=== PATIENT | male | born 1960 | race Caucasian/White ===

== ENCOUNTER 2017-11-28 13:36 | Inpatient (IN) | payer OTHER ==
[~2017-11-28] VITALS: Ht 165.1 cm; Wt 64.4 kg
[~2017-11-28 13:36] MED LIST: CYCLOBENZAPRINE10 M1 PO; NAPROSYN500 M1 PO
--- NOTE | 2017-11-28 14:12 | ED GI/GU/ABDOMINAL COMPLAINT ---
History of Present Illness General Chief Complaint: Abdominal Pain/Flank Pain Stated Complaint: ABD PAIN TO RUQ, X 1 DAY Source: patient Exam Limitations: no limitations Vital Signs & Intake/Output Vital Signs & Intake/Output Vital Signs Date Time Temp Pulse Resp B/P B/P Pulse O2 O2 Flow FiO2 Mean Ox Delivery Rate 11/28 1824 98.3 76 18 121/86 96 Room Air 11/28 1625 98.8 80 18 129/85 97 Room Air 11/28 1508 97.2 80 20 155/84 100 Room Air 11/28 1444 97 Room Air 11/28 1342 96.5 86 16 148/93 98 Room Air Allergies Coded Allergies: NO KNOWN ALLERGIES (01/15/12) Reconcile Medications Cyclobenzaprine HCl 10 MG TABLET 1 TAB PO Q8P SPASMS Naproxen (Naprosyn) 500 MG TABLET 1 TAB PO BID pain Triage Note: 57 Y/O MALE C/O RLQ PAIN SINCE THIS AM. HISTORY MULTIPLE ABDOMINAL SURGERIES WHICH HAVE RESULTED IN LARGE BULGE TO ABDOMEN, "ITS ALWAYS LIKE THIS". PT DENIES NOTING AREA BEING ANY LARGER HOWEVER STATES HE NORMALLY DOESNT HAVE PAIN IN AREA. DENIES N/V/D. DENIES CHANGES IN BMS. WENT TO [facility] AND STATES THE PA "TRIED TO PUSH ON IT". SENT TO ED FOR FURTHER EVAL Triage Nurses Notes Reviewed? yes HPI: Mr. Newell is a 57-year-old male with a past medical history significant for colon cancer s/p bowel resection (age 41) SIB urgent clinic for further evaluation of ventral hernia and abdominal pain. He states his abdominal pain is 2 out of 10 in severity without radiation. No alleviating factors. He reports his bowel resection was complicated by a ventral hernia that has not changed in size and is not reducible. He reports a recent colonoscopy with no new signs of cancer. He reports flank pain exacerbated by cough. Patient reports normal last bowel movement was today. He denies fever, chills, nausea, vomiting, urinary or bowel symptoms. (Heraclio LUCAS,[facility]) Past History Travel History Traveled to [place] past 21 day No Medical History Any Pertinent Medical History? 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 Yes (Heraclio LUCAS,Alexander) Review of Systems Review of Systems Constitutional: Reports: see HPI. (Heraclio LUCAS,Alexander) Physical Exam Physical Exam General Appearance: well developed/nourished, no apparent distress Ears, Nose, Throat, Mouth: moist mucous membrane Respiratory: normal breath sounds, lungs clear Cardiovascular: regular rate/rhythm Gastrointestinal: Ventral hernia, reducible, mild flank tenderness with palpation Core Measures ACS in differential dx? No Sepsis Present: No Sepsis Focused Exam Completed? No (Heraclio LUCAS,Alexander) Progress Differential Diagnosis: bowel obstruction, colon cancer, hernia, ischemic bowel Plan of Care: Orders Procedure Date/time Status Nothing by Mouth 11/29 B Active CBC WITHOUT DIFFERENTIAL 11/29 06 Active BASIC ELECTROLYTES PLUS BUN&CR 11/29 599 Active Nothing by Mouth 11/28 D Complete Pathway - chart 11/28 1904 Active Admit to inpatient 11/28 190 Active Patient Data 11/28 190 Active Code Status 11/28 1901 Active Misc Message 11/28 190 Active ED Holding Orders 11/28 190 Active Vital Signs 11/28 190 Active Code Status 11/28 190 Complete CBC WITHOUT DIFFERENTIAL 11/28 1413 Complete BASIC ELECTROLYTES PLUS BUN&CR 11/[address] in observation 11/28 UNK Active VTE Mechanical Prophylaxis 11/28 UNK Active Vital Signs 11/28 UNK Active Intake & Output 11/28 UNK Active Activity/Ambulation 11/28 UNK Active Current Medications Sig/Aurelio Start time Last Medication Dose Stop Time Status Admin Heparin Sodium 5,000 UNIT Q8 11/29 0600 UNVr (Porcine) Dextrose/Lactated 1,000 ML Q8H 11/28 1914 UNVr Ringer's (D5W in Lactated Ringers) Ondansetron HCl 4 MG Q6P PRN 11/28 1914 AC (Zofran) Laboratory Tests 11/28/17 1428: Anion Gap 15, Estimated GFR > 60, BUN/Creatinine Ratio 20.0, CBC w Diff NO MAN DIFF REQ, RBC 5.38, MCV 84.9, MCH 29.1, MCHC 34.3, RDW 14.5, MPV 8.3, Gran % 81.7 H, Lymphocytes % 11.2 L, Monocytes % 5.5, Eosinophils % 1.3, Basophils % 0.3, Absolute Granulocytes 6.8 H, Absolute Lymphocytes 0.9 L, Absolute Monocytes 0.5, Absolute Eosinophils 0.1, Absolute Basophils 0 Initial ED EKG: none Comments: Spoke with Dr. Ennis regarding CT findings. He will further evaluate the patient for possible surgical intervention (Alexander Pulliam MD) Departure Departure Condition: Stable Referrals: Grant LUCAS,Adam (PCP/Family) Departure Forms: Customer Survey General Discharge Information Admission Note Spoke With: Loli LUCAS,Tom N. Documentation of Exam: Documentation of any treatments & extenuating circumstances including Concerns Regarding Discharge (functional status, medication knowledge or non-compliance, living conditions, etc.) that warrant an admission rather than observation: [ Given patient's history patient is a poor candidate for outpatient management, patient's condition may result in bowel ischemia and/or hemorrhage, patient will require surgery consultation, bowel rest, and further monitoring] (Alexander Pulliam MD) Departure Disposition: STILL A PATIENT Clinical Impression Primary Impression: Ventral hernia Qualifiers: Obstruction and gangrene presence: with obstruction but without gangrene Qualified Code: K43.6 - Other and unspecified ventral hernia with obstruction, without gangrene Admission Note Documentation of Exam: Documentation of any treatments & extenuating circumstances including Concerns Regarding Discharge (functional status, medication knowledge or non-compliance, living conditions, etc.) that warrant an admission rather than observation: Resident Co-Sign Statement Statement: ED Attending supervision documentation- [X] I saw and evaluated the patient. I have also reviewed all the pertinent lab results and diagnostic results. I agree with the findings and the plan of care as documented in the Resident's documentation. Patient presents for evaluation of a right-sided abdominal pain that waxes and wanes in intensity. Patient had a normal bowel movement at about 7:00 this morning which did improve his pain. Physical examination reveals a large right ventral hernia that is soft but tender (patient states the area is typically not tender). [] I have reviewed the ED Record and agree with the Resident's documentation. [] Additions or exceptions (if any) to the Resident's note and plan are summarized below: [] (Gladys LUCAS,Sachin Strickland)
[2017-11-28 14:38] LABS: ABSOLUTE BASOPHIL COUNT 0 /CUMM (0.0-0.2); ABSOLUTE EOSINOPHIL COUNT 0.1 /CUMM (0.0-0.7); ABSOLUTE GRANULOCYTE CT 6.8 /CUMM (1.4-6.5); ABSOLUTE LYMPH COUNT 0.9 /CUMM (1.2-3.4); ABSOLUTE MONOCYTE COUNT 0.5 /CUMM (0.10-0.60); BASOPHIL % 0.3 % (0.0-2.0); EOSINOPHIL % 1.3 % (0-5); GRANULOCYTE % 81.7 % (42.2-75.2); HEMATOCRIT 45.7 % (42-52); MEAN CORPUSCULAR HGB 29.1 PG (27.0-31.0); MEAN CORPUSCULAR HGB CONC 34.3 G/DL (33.0-37.0); MEAN CORPUSCULAR VOLUME 84.9 FL (80.0-94.0); MEAN PLATELET VOLUME 8.3 FL (7.4-10.4); PLATELET COUNT 193 /CUMM (130-400); RBC DISTRIBUTION WIDTH 14.5 % (11.5-14.5); RED BLOOD CELL CT 5.38 /CUMM (4.70-6.10); WHITE BLOOD CELL COUNT 8.3 /CUMM (4.8-10.8)
--- NOTE | 2017-11-28 16:09 | CT SCAN REPORT ---
EXAMINATION: CT ABDOMEN AND PELVIS WITH CONTRAST CLINICAL INFORMATION: Right ventral wall hernia. Pain. Concern for strangulation hernia. COMPARISON: CT scan abdomen pelvis 02/12/2015. PET/CT exam of 06/04/2017 TECHNIQUE: Multidetector volumetric imaging was performed of the abdomen and pelvis following IV administration of 95 mL of Optiray 320 intravenous contrast. Sagittal and coronal reformatted images were obtained on the technologist's workstation. DLP: 257.26 mGy-cm FINDINGS: LUNG BASES: The visualized lung bases are unremarkable. LIVER, GALLBLADDER, AND BILIARY TREE: Mild low attenuation of liver parenchyma due to fatty change. No focal liver lesion. No intrahepatic bile duct dilatation. The gallbladder is unremarkable with no evidence of radiopaque gallstones, gallbladder wall thickening, or obvious pericholecystic inflammatory changes. PANCREAS: Unremarkable. SPLEEN: Unremarkable. ADRENAL GLANDS: Unremarkable. KIDNEYS AND URETERS: The kidneys are normal in size, shape, and attenuation. No hydronephrosis, hydroureter, or calculi seen. No perinephric stranding. BLADDER: Unremarkable. ABDOMINAL WALL/GASTROINTESTINAL TRACT: There is herniation of large and small bowel loops through a far right lateral abdominal wall hernia. This hernia is chronic unchanged since prior studies. There are dilated small bowel loops within the hernia at the midabdomen through lower pelvis consistent with a small bowel obstruction. The terminal ileum is decompressed. The large bowel is decompressed. There is a surgical suture line at the right colon. Moderate volume of stool throughout the colon. No bowel wall thickening or edema. MESENTERY: No free air or free fluid. No inflammation. LYMPH NODES: Normal. VASCULAR: Atherosclerotic vascular wall calcification of aorta and iliac vessels. No aneurysm. PELVIC VISCERA: Prostate measures 3.8 cm transverse. OSSEOUS STRUCTURES: Unremarkable. IMPRESSION: Small bowel obstruction. No bowel wall thickening or edema. No evidence of bowel ischemia. No abdominal ascites.
--- NOTE | 2017-11-28 19:06 | Admission Core Measures ---
Acute Coronary Syndrome (CM) ACS Core Measures Acute Coronary Syndrome Diagnosis No Congestive Heart Failure (NEW) CHF Core Measures Congestive Heart Failure Diagnosis No Cerebrovascular Accident (NEW) CVA Core Measures CVA/TIA Diagnosis No Venous Thromboembolism VTE Core Oscar (View Protocol) VTE Risk Factors Acute Medical Illness No Mechanical VTE Prophylaxis d/t N/A MechProphylax Ordered No VTE Pharm Prophylaxis d/t NA PharmProphylax ordered Problem List As ranked by this Provider includes Assessment & Plan 1. SBO (small bowel obstruction) HOME MEDS Home Med List Cyclobenzaprine HCl 10 MG TABLET 1 TAB PO Q8P SPASMS Naproxen (Naprosyn) 500 MG TABLET 1 TAB PO BID pain
[2017-11-28 23:10] VITALS: BP 112/70
[2017-11-29 06:00] VITALS: BP 128/74
[2017-11-29 09:14] LABS: ABSOLUTE BASOPHIL COUNT 0 /CUMM (0.0-0.2); ABSOLUTE EOSINOPHIL COUNT 0.2 /CUMM (0.0-0.7); ABSOLUTE GRANULOCYTE CT 3.8 /CUMM (1.4-6.5); ABSOLUTE LYMPH COUNT 1.2 /CUMM (1.2-3.4); ABSOLUTE MONOCYTE COUNT 0.5 /CUMM (0.10-0.60); BASOPHIL % 0.2 % (0.0-2.0); EOSINOPHIL % 2.7 % (0-5); GRANULOCYTE % 67.6 % (42.2-75.2); HEMATOCRIT 43.9 % (42-52); MEAN CORPUSCULAR HGB 28.7 PG (27.0-31.0); MEAN CORPUSCULAR VOLUME 86.9 FL (80.0-94.0); MEAN PLATELET VOLUME 8.9 FL (7.4-10.4); PLATELET COUNT 180 /CUMM (130-400); RBC DISTRIBUTION WIDTH 14.5 % (11.5-14.5); RED BLOOD CELL CT 5.05 /CUMM (4.70-6.10); WHITE BLOOD CELL COUNT 5.6 /CUMM (4.8-10.8)
--- NOTE | 2017-11-29 11:35 | RADIOLOGY REPORT ---
EXAMINATION: XR ABDOMEN MULTIPLE VIEWS CLINICAL INDICATION: Abdominal pain. Question small bowel distortion. COMPARISON: CT scan of the abdomen and pelvis 11/28/2017. TECHNIQUE: 2 views of the abdomen. FINDINGS: There are a few somewhat prominent air-filled loops of small bowel within the right hemiabdomen that demonstrate layering fluid on the upright image. Intraluminal gas and stool is visualized within a nondistended colon. Solid organ contours are normal. No acute osseous finding. Excreted contrast within the urinary bladder is noted. IMPRESSION: There are a few prominent small bowel loops within the right hemiabdomen that demonstrate layering fluid on upright examination. These findings may represent a manifestation of ileus or partial obstruction.
[2017-11-29 14:06] VITALS: BP 126/80
--- NOTE | 2017-11-29 19:30 | History & Physical Pre-Op ---
General Information and HPI MD Statement: I have seen and personally examined NICOLE GONZALEZ and documented this H&P. The patient is a 57 year old M who presented with a patient stated chief complaint of []. History of Present Illness: CC: abdominal pain HPI: 57 yo non-diabetic smoker no medications history of colectomy for cancer over 10 years ago complicated by a large right lateral ventral incisional hernia. He comes in with a 1 day history of tightness pressure and moderate pain in his abdomen on the side of the hernia, no nausea or vomiting, he has been eating salad more lately, a few days ago he was exerting himself a lot changing wheels and tires with his son, otherwise no recent flulike symptoms doesn't recall being dehydrated he has passed a little bit of gas earlier today but otherwise no bowel movement since yesterday, his bowel movements are regular for a long time ever since this hernia. The pain is not constant and doesn't radiate. I've reviewed the [facility]. No history of GERD, PUD, bleeding problems, heart disease or issues with anesthesia. Family history is negative for diabetes or cancer or heart disease. 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 History of MRSA: No History of VRE: No History of CDIFF: No Isolation History: Standard Surgical History Pertinent Surgical History: appendectomy, colon resection Past Family/Social History Psychosocial History Smoking Status: Current Everyday Smoker Review of Systems Review of Systems: Constitutional: No fever, sweats or weight loss ENMT: No sore throat Cardiovascular: No chest pain, palpitations or leg swelling Respiratory: No shortness of breath, cough, or sputum or dyspnea on exertion GI: No GERD or bleeding per rectum : No dysuria or hematuria Musculoskeletal: No new muscle weakness, bone or joint pain Skin / Breast: No jaundice, rashes or itching Psychiatric: No history of drug or alcohol abuse no depression or anxiety Hematologic / lymphatic system: No problems with excessive bleeding, bruising, or blood clots Exam & Diagnostic Data Last 24 Hrs of Vital Signs/I&O I reviewed Vital Signs Date Time Temp Pulse Resp B/P B/P Pulse O2 O2 Flow FiO2 Mean Ox Delivery Rate 11/28 2310 98.5 69 20 112/70 94 Room Air 11/28 2214 98.8 80 16 114/79 95 Room Air 11/28 2031 98.2 80 16 134/71 96 Room Air Intake & Output 142 lb Weight Physical Exam: Constitutional: pleasant, no acute distress, conversant Eyes: sclera anicteric ENMT: ears and nose atraumatic, moist mucous membranes, good dentition, no lip lesions Neck: Supple, trachea is midline, no cervical or supraclavicular adenopathy and no palpable thyromegaly Cardiovascular: S1, S2, no murmurs, no peripheral edema Respiratory: clear to auscultation with normal respiratory effort and no intercostal retractions GI: abdomen soft, large right lateral ventral hernia little firm positive bowel sounds minimal tenderness no rebound no guarding unable to appreciate for hepatomegaly because of the hernia Extremities / lymphatics: symmetrically warm, free range of motion no peripheral edema, no cervical, supraclavicular, axillary, or inguinal adenopathy Musculoskeletal: Did not evaluate gait and station, no digital cyanosis, good muscle strength and tone no atrophy, motor grossly 5 out of 5 throughout Skin: no jaundice, no rashes warm, nondiaphoretic, no areas of erythema or induration Psychiatric: mood and affect are appropriate and alert and oriented to person place and time Last 24 Hrs of Labs/Ezekiel: Laboratory Tests BUN 14 creatinine 0.7 sodium 143 potassium 3.9 chloride 105 bicarbonate 23 anion gap 15 white count 8.3 hemoglobin 15.7 hematocrit 45.7 platelets 193 81.7% granulocytes I reviewed multiple CT scans on PACS myself the liver from today compared to a PET CT from May 2017 from May 2013 from March 2010 we'll show this large hernia space cleared the same size defect spans from his right iliac crest to his liver on the current study there is some relative dilation of the small bowel and the area of the anastomosis appears dilated but not obviously the transition Assessment/Plan Assessment/Plan: Impression is small bowel obstruction presumably from adhesions from prior surgeries, often exacerbated by an unusual meal high in fiber or chewy food, it might be the salad even though it didn't seem unusual to him, or even straining, recent lifting of those tires may also be related. The hernia defect size I measured over 13 cm and its chronic, some of the dilated loops continue into the main abdomen so it's not the hernia per se. In the meantime will treat in routine nonoperative fashion with bowel rest, the stomach is dilated a little bit but is not nauseous hasn't vomited so we'll hold off with NG tube for decompression for now, maintenance IV fluids and for the GI losses, monitor uo, electrolytes, vital signs, serial exams, labs, abdominal x-rays. Presently there are no peritoneal signs, if situation plateaus or worsens, especially if abdominal pain worsens in next 6-12 hours, might need urgent surgical intervention in the interest of bowel viability, but as I explained, most of the time it is not needed. As Ranked By This Provider Problem List: 1. SBO (small bowel obstruction) 2. Ventral hernia 3. History of colon cancer Copies To: Loli LUCAS,Tom Barker Attending MD Review Statement Attending Statement Attending MD Statement: examined this patient
--- NOTE | 2017-11-29 19:31 | PN- General Surgery ---
Subjective Subjective: followup SBO I saw him twice today he says he feels a little less distended than earlier this morning no significant flatus but no nausea no vomiting no fevers no sweats and no abdominal pain he's hungry later this afternoon he started to feel a little bit of gas movement. No analgesics Objective Vital Signs and I&Os I rev Vital Signs Date Time Temp Pulse Resp B/P B/P Pulse O2 O2 Flow FiO2 Mean Ox Delivery Rate 11/29 1406 97.6 62 20 126/80 95 Room Air 11/29 0844 96 Room Air 11/29 0600 98.5 74 18 128/74 97 Room Air 11/28 2316 Room Air 11/28 2310 98.5 69 20 112/70 94 Room Air 11/28 2214 98.8 80 16 114/79 95 Room Air 11/28 2031 98.2 80 16 134/71 96 Room Air I rev Intake & Output 11/29 1600 11/29 0800 11/29 0000 11/28 1600 11/28 0800 11/28 0000 Intake Total 1000 1000 0 Output Total Balance 1000 1000 0 Intake, IV 1000 1000 Intake, Oral 0 0 Number 0 Bowel Movements Patient 142 lb 142 lb Weight Weight Reported by Patient Measurement Method Physical Exam: Constitutional: no acute distress no pain Eyes: sclera anicteric ENMT: moist mucous membranes Cardiovascular: S1-S2 no murmurs no peripheral edema Respiratory: clear to auscultation with normal respiratory effort and no intercostal retractions GI: abdomen softer than this morning nontender nondistended positive bowel sounds not hyperactive Extremities / lymphatics: free range of motion no peripheral edema Skin: no jaundice no rashes warm, nondiaphoretic Psychiatric: mood and affect are appropriate and alert and oriented to person place and time Current Medications: I reviewed Current Medications Sig/Aurelio Start time Last Medication Dose Route Stop Time Status Admin Dextrose/Lactated 1,000 ML Q8H 11/28 1914 AC 11/29 Ringer's IV 1338 Heparin Sodium 5,000 UNIT Q8 11/29 06 AC 11/29 (Porcine) SC 0537 Ondansetron HCl 4 MG Q6P PRN 11/28 1914 AC IV Results Last 48 Hours of Labs: I reviewed Laboratory Tests 11/29 11/28 0800 1428 Chemistry Sodium (137 - 145 mmol/L) 143 143 Potassium (3.5 - 5.1 mmol/L) 4.1 3.9 Chloride (98 - 107 mmol/L) 108 H 105 Carbon Dioxide (22 - 30 mmol/L) 22 23 Anion Gap (5 - 16) 13 15 BUN (9 - 20 mg/dL) 12 14 Creatinine (0.7 - 1.2 mg/dL) 0.7 0.7 Estimated GFR (>60 ml/min) > 60 > 60 BUN/Creatinine Ratio (7 - 25 %) 17.1 20.0 Hematology CBC w Diff NO MAN DIFF REQ NO MAN DIFF REQ WBC (4.8 - 10.8 /CUMM) 5.6 8.3 RBC (4.70 - 6.10 /CUMM) 5.05 5.38 Hgb (14.0 - 18.0 G/DL) 14.5 15.7 Hct (42 - 52 %) 43.9 45.7 MCV (80.0 - 94.0 FL) 86.9 84.9 MCH (27.0 - 31.0 PG) 28.7 29.1 MCHC (33.0 - 37.0 G/DL) 33.0 34.3 RDW (11.5 - 14.5 %) 14.5 14.5 Plt Count (130 - 400 /CUMM) 180 193 MPV (7.4 - 10.4 FL) 8.9 8.3 Gran % (42.2 - 75.2 %) 67.6 81.7 H Lymphocytes % (20.5 - 51.1 %) 20.7 11.2 L Monocytes % (1.7 - 9.3 %) 8.8 5.5 Eosinophils % (0 - 5 %) 2.7 1.3 Basophils % (0.0 - 2.0 %) 0.2 0.3 Absolute Granulocytes (1.4 - 6.5 /CUMM) 3.8 6.8 H Absolute Lymphocytes (1.2 - 3.4 /CUMM) 1.2 0.9 L Absolute Monocytes (0.10 - 0.60 /CUMM) 0.5 0.5 Absolute Eosinophils (0.0 - 0.7 /CUMM) 0.2 0.1 Absolute Basophils (0.0 - 0.2 /CUMM) 0 0 Assessment/Plan Assessment/Plan Studies I reviewed today's multiview on PACS myself it's essentially the same as yesterday's CT [place], not worse. Impression is small bowel obstruction not severe enough to the point of needing an NG tube but not improved enough to start diet though he is encouraged that he is a little softer and no more pain this afternoon so continue present care, awaiting return of bowel function hoping to avoid surgery as it would be very complex with this hernia which would be very difficult to close, at this point I would change him from an observation to admission status this may take a few days of nonoperative management. Core Measures Venous Thromboembolism VTE Risk Factors Acute Medical Illness No Mechanical VTE Prophylaxis d/t N/A MechProphylax Ordered No VTE Pharm Prophylaxis d/t NA PharmProphylax ordered
--- NOTE | 2017-11-29 21:59 | Patient Discharge Instructions ---
Discharge Instructions General Discharge Information You were seen/treated for: Bowel obstruction You had these procedures: Conservative treatment, bowel rest Watch for these problems: Increasing pain Increasing nausea or vomitting Inability to urinate, pass gas, or move bowels Fever greater than 101.5 Special Instructions: Advance diet slowly as tolerated Diet Continue normal diet: Yes Activity Full Activity/No Limits: No Activity Self Limited: Yes Acute Coronary Syndrome Inclusion Criteria At DC or during hospital stay patient has or had the following: ACS DIAGNOSIS No Discharge Core Measures Meds if any: Prescribed or Continued at Discharge Meds if any: NOT Prescribed or Continued at Discharge Congestive Heart Failure Inclusion Criteria At DC or during hospital stay patient has or had the following: CHF DIAGNOSIS No Discharge Core Measures Meds if any: Prescribed or Continued at Discharge Meds if any: NOT Prescribed or Continued at Discharge Cerebrovascular accident Inclusion Criteria At DC or during hospital stay patient has or had the following: CVA/TIA Diagnosis No Discharge Core Measures Meds if any: Prescribed or Continued at Discharge Meds if any: NOT Prescribed or Continued at Discharge Venous thromboembolism Inclusion Criteria VTE Diagnosis No VTE Type NONE VTE Confirmed by (Test) NONE Discharge Core Measures - Per Current guidelines, there needs to be overlap - treatment for the first 5 days of Warfarin therapy. - If discharged on Warfarin prior to 5 days of - overlap therapy, the patient will need to be - assessed for post discharge needs including - *Post discharge parental anticoagulation - *Warfarin and/or parental anticoagulation education - *Follow up date to check INR post discharge At least 5 days overlap therapy as Inpatient No Meds if any: Prescribed or Continued at Discharge Note: Overlap Therapy is Warfarin and Anticoagulant Meds if any: NOT Prescribed or Continued at Discharge
[2017-11-29 22:21] VITALS: BP 130/80
[2017-11-30 07:47] VITALS: BP 126/70
[2017-11-30 09:14] LABS: ABSOLUTE BASOPHIL COUNT 0 /CUMM (0.0-0.2); ABSOLUTE EOSINOPHIL COUNT 0.1 /CUMM (0.0-0.7); ABSOLUTE GRANULOCYTE CT 3.6 /CUMM (1.4-6.5); ABSOLUTE MONOCYTE COUNT 0.4 /CUMM (0.10-0.60); BASOPHIL % 0.4 % (0.0-2.0); EOSINOPHIL % 2.7 % (0-5); MEAN CORPUSCULAR HGB 28.5 PG (27.0-31.0); MEAN CORPUSCULAR HGB CONC 33.1 G/DL (33.0-37.0); MEAN CORPUSCULAR VOLUME 86.2 FL (80.0-94.0); MEAN PLATELET VOLUME 8.7 FL (7.4-10.4); PLATELET COUNT 183 /CUMM (130-400); RBC DISTRIBUTION WIDTH 14.5 % (11.5-14.5); RED BLOOD CELL CT 4.99 /CUMM (4.70-6.10); WHITE BLOOD CELL COUNT 5.2 /CUMM (4.8-10.8)
--- NOTE | 2017-11-30 09:46 | PN- General Surgery ---
See Addendum Subjective Subjective: Awake, alert Feels good and wants to go home Pain is well controlled - very slight "gas" pain intermittently to upper left abdomen but significantly different from admission per patient Passing "tons" of gas, +bm yesterday morning - none since admission Denies nausea Objective Vital Signs and I&Os Vital Signs Date Time Temp Pulse Resp B/P B/P Pulse O2 O2 Flow FiO2 Mean Ox Delivery Rate 11/30 0747 97.7 70 20 126/70 92 Room Air 11/29 2221 98.1 64 20 130/80 96 Room Air 11/29 1406 97.6 62 20 126/80 95 Room Air Intake & Output 11/30 1600 11/30 0800 11/30 0000 11/29 1600 11/29 0800 11/29 0000 Intake Total 1000 1000 1000 1000 Output Total Balance 1000 1000 1000 1000 Intake, IV 1000 1000 1000 1000 Intake, Oral 0 Number 0 Bowel Movements Patient 142 lb 142 lb Weight Physical Exam: afebrile, vss General: alert and oriented times three Chest: clear anteriorly bilaterally, RRR Abd: good bs, large ventral hernia - at baseline per patient, nondistended, mildly tender only to deep palpation at LUQ Ext: warm, no edema Assessment/Plan Assessment/Plan 57yo male admitted with sbo/ventral hernia now passing flatus resolving sbo advance to clears now follow up after diet Core Measures Venous Thromboembolism VTE Risk Factors Acute Medical Illness No Mechanical VTE Prophylaxis d/t N/A MechProphylax Ordered No VTE Pharm Prophylaxis d/t NA PharmProphylax ordered
== END 2017-11-30 12:45 | disposition left against medical advice (07) | DRG 390 ==
LOC: ERH 13:36 → 2NA 19:01 → ERHI 19:01 → 2NA 19:01 → ENRESERV 21:57 → ENTRNSPT 22:46 → EDTRNSPTSTS 22:50 → 2NA 22:59 → CMPTRNSPT 23:14 → 2NA 11-29 05:37
PROVIDERS: Nurse Practitioner; Physician Assistant Surgical; Student in an Organized Health Care Education/Training Program
DX: K56.50 Intestinal adhesions [bands], unspecified as to partial versus complete obstruction (principal); K43.9 Ventral hernia without obstruction or gangrene; Z85.038 Personal history of other malignant neoplasm of large intestine
CPT/HCPCS: 2NASP; 6030; 36415; 74021; 74177; 82436; G0378; J1644